=== PATIENT | male | born 2000 | race Hispanic/Latino ===

== ENCOUNTER 2023-10-11 04:03 | Inpatient (IN) | payer SELFPAY ==
[2023-10-11] MEDS ORDERED: PROPOFOL 20 ML ONE (04:28)
[2023-10-11 04:43] LABS: #Basophils 0.08 10x3/uL (0.0-0.2); %Basophils 0.6 % (0.0-1.0); %Eosinophils 0.7 % (0.0-10.0); %Lymphocytes 17.4 % (21.0-51.0); %Monocytes 6.2 % (0.0-10.0); %Neutrophils 74.7 % (42.0-75.0); Hematocrit 45.2 % (42.0-52.0); Hemoglobin 15.5 g/dL (14.0-18.0); Mean Corpuscular HGB CONC 34.3 g/dL (32.0-36.0); Mean Corpuscular Hemoglobin 30.1 pg (27.0-31.0); Mean Corpuscular Volume 87.8 fL (78.0-98.0); Platelet Count 231 10x3/uL (130-400); RBC Distribution Width 12.9 % (11.5-14.5); Red Blood Cell (RBC) Count 5.15 mill/uL (4.70-6.10)
[2023-10-11] MEDS ORDERED: Tranexamic Acid 1,000 MG/10 ML VIAL ONE ×2 (04:43→04:46)
[2023-10-11 04:57] LABS: INR-International Normal Ratio 0.9; Prothrombin Time 12.5 sec (12.0-14.7)
[2023-10-11 04:58] LABS: PTT 25.7 sec (22.9-36.1)
[2023-10-11 04:59] LABS: ALT (SGPT) 53 U/L (8-55); AST (SGOT) 39 U/L (5-34); Albumin 4.4 g/dL (3.5-5.0); Alkaline Phosphatase 78 U/L (40-110); Anion Gap 12 mmol/L (10-20); BUN (Urea Nitrogen) 16 mg/dL (8.9-20.6); Bilirubin, Total 0.5 mg/dL (0.2-1.2); Calc. Creatinine Clearance 0 mL/min (70-130); Calcium 9.8 mg/dL (7.8-10.44); Carbon Dioxide 24 mmol/L (22-29); Chloride 105 mmol/L (98-107); Estimated GFR 113; Globulin 3.9 g/dL (2.4-3.5); Glucose 99 mg/dL (70-105); Protein, Total 8.3 g/dL (6.0-8.3); Sodium 137 mmol/L (136-145)
[2023-10-11] MEDS ORDERED: fentaNYL 50 mcg/mL 1 mL Vial ONE (04:59)
[2023-10-11] MEDS ORDERED: Lidocaine 1% w/Epinephrine 1:100K 20 ML VIAL ONE (04:59)
[2023-10-11] MEDS ORDERED: Promethazine HCl 25 MG/ML VIAL IM PRN (06:03)
[2023-10-11] MEDS ORDERED: Ondansetron PF 4 MG/2 ML Vial IVP PRN (06:03)
[2023-10-11] MEDS ORDERED: Acetaminophen 325 MG TAB PO PRN (06:03)
[2023-10-11 06:37] VITALS: BMI 30.7
[2023-10-11] MEDS: Morphine 2 MG/ML VIAL SLOW IVP PRN (09:12)
[2023-10-11] MEDS ORDERED: Dexamethasone 4 mg/ml Vial ONE (11:48)
[2023-10-11] MEDS ORDERED: fentaNYL PF 100 MCG/2 ML SYRINGE ONE ×2 (11:48→12:35)
[2023-10-11] MEDS ORDERED: PROPOFOL 40 ML ONE (11:48)
[2023-10-11] MEDS ORDERED: Ondansetron PF 4 MG/2 ML Vial ONE ×2 (11:48→11:49)
[2023-10-11] MEDS ORDERED: Lidocaine 1% PF 5 ML VIAL ONE (11:48)
[2023-10-11] MEDS ORDERED: Ketorolac Tromethamine 30 MG (1 mL) VIAL ONE (11:50)
[2023-10-11] MEDS ORDERED: Dexmedetomidine 200 MCG/2 ML VIAL ONE (11:52)
[2023-10-11] MEDS ORDERED: Sodium Chloride 0.9% 100 ML ONE (12:01)
[2023-10-11] MEDS ORDERED: CEFAZOLIN 2 GM VIAL ONE (12:01)
[2023-10-11] MEDS ORDERED: Iopamidol-370 76% 500 ML MDV (1 ML CHARGE) ONE (12:47)
[2023-10-11] MEDS: Sodium Chloride 0.9% 1,000 ML IV SCH (14:25)
[2023-10-11] MEDS: CEFAZOLIN 1 GM in Sodium Chloride 0.9% 100 ML IVPB SCH (17:35)
[2023-10-11] MEDS: traMADol HCl 50 MG TAB PO PRN (18:24)
[2023-10-11 19:48] VITALS: BP 131/78; TEMP 98.7
== END 2023-10-11 20:42 | disposition home or self-care (01) | DRG 502 ==
LOC: EDBD 04:03 → ERS 04:03 → ERHOLD 05:30 → SJJU 08:35
PROVIDERS: ADMIT Surgery; ATTEND Surgery
PROC: 0JQF0ZZ Repair Left Upper Arm Subcutaneous Tissue and Fascia, Open Approach (ICD-10-PCS; principal; 2023-10-11)
PROC: 0JQF0ZZ Repair Left Upper Arm Subcutaneous Tissue and Fascia, Open Approach (ICD-10-PCS; 2023-10-11)
DX: S42.402B Unspecified fracture of lower end of left humerus, initial encounter for open fracture (principal); S41.112A Laceration without foreign body of left upper arm, initial encounter; W45.8XXA Other foreign body or object entering through skin, initial encounter; Z79.899 Other long term (current) drug therapy
CPT/HCPCS: 12031; 29105; 36415; 70450; 71260; 72125; 74177; 80053; 85025; 85610; 85730; 86850; 86900; 86901; 90471; 94760; 96374; 96375; 96376; 99152; 99153; G0390; J1100; J1885; J2272; J2405; J2704; J3010; J3490; J7050; Q9967